=== PATIENT | male | born 1970 | race Caucasian/White ===

== ENCOUNTER 2019-04-14 08:51 | Inpatient (IN) | payer OTHER ==
[2019-04-12 14:22] LABS: BASOPHILS # (AUTO) 0.02 x10^3/uL (0-0.1); BASOPHILS % (AUTO) 0 % (0-1); EOSINOPHILS # (AUTO) 0.02 x10^3/uL (0-0.4); EOSINOPHILS % (AUTO) 0 % (1-7); LYMPHOCYTES # (AUTO) 1.15 x10^3/uL (1-3.4); LYMPHOCYTES % (AUTO) 14 % (22-44); MD NO; MEAN CORPUSCULAR HEMOGLOBIN 28.9 pg (27.5-34.5); MEAN CORPUSCULAR HGB CONC 32.2 g/dL (33.2-36.2); MEAN CORPUSCULAR VOLUME 89.8 fL (81-97); MEAN PLATELET VOLUME 7.3 fL (7.4-10.4); MONOCYTES # (AUTO) 0.52 x10^3/uL (0.2-0.8); MONOCYTES % (AUTO) 6 % (2-9); NEUTROPHILS # (AUTO) 6.53 x10^3/uL (1.8-6.8); NEUTROPHILS % (AUTO) 79 % (42-75); PLATELET COUNT 298 x10^3/uL (130-400); RED BLOOD COUNT 4.14 x10^6/uL (4.38-5.82); RED CELL DISTRIBUTION WIDTH 13.8 % (9.4-14.8)
[2019-04-12 14:33] LABS: ALANINE AMINOTRANSFERASE 24 U/L (12-78); ALBUMIN 3.4 g/dL (3.4-5.0); ANION GAP 7 mmol/L (5-15); CALCIUM 8.4 mg/dL (8.5-10.1); CHLORIDE 111 mmol/L (98-107); CREATININE 1.49 mg/dL (0.7-1.3)
[2019-04-12 14:35] LABS: ALKALINE PHOSPHATASE 72 U/L (45-117); BILIRUBIN,TOTAL 0.3 mg/dL (0.2-1.0); TOTAL PROTEIN 6.8 g/dL (6.4-8.2)
[~2019-04-14] VITALS: Ht 182.9 cm; Wt 99.2 kg
[~2019-04-14 08:51] MED LIST: ADAL40SY INJ; BUDE3CAP6 PO; DIPH1TAB PO
[2019-04-14] MEDS ORDERED: LACTATED RINGERS 1,000 ML IV SCH (09:13)
[2019-04-14 09:21] VITALS: BP 136/82
[2019-04-14] MEDS ORDERED: ACETAMINOPHEN 500 MG TABLET PO ONE (09:30)
[2019-04-14] MEDS ORDERED: GABAPENTIN 300 MG CAPSULE PO ONE (09:30)
[2019-04-14] MEDS ORDERED: ROCURONIUM 10MG/ML,5ML ONE ×2 (11:22→12:16)
[2019-04-14] MEDS ORDERED: EPHEDRINE 50 MG/ML, 1ML ONE (11:22)
[2019-04-14] MEDS ORDERED: PROPOFOL 10 MG/ML, 20ML ONE ×3 (11:22→14:46)
[2019-04-14] MEDS ORDERED: MIDAZOLAM 1 MG/ML, 2ML ONE (11:23)
[2019-04-14] MEDS ORDERED: FENTANYL PF 100 MCG/2ML ONE ×5 (11:23→15:39)
[2019-04-14] MEDS ORDERED: PHENYLEPHRINE 10 MG/ML ONE (11:26)
[2019-04-14] MEDS ORDERED: methylPREDNISolone SOD SUCC 40 MG/ML ONE (11:48)
[2019-04-14] MEDS ORDERED: CEFOTETAN PMX 2GM/50ML 50 ML ONE (12:16)
[2019-04-14] MEDS ORDERED: OXYcodone 5 MG/5 ML ORAL.SOL UDC PO PRN (13:00)
[2019-04-14] MEDS ORDERED: HYDROcodone/APAP 7.5-325MG/15ML UDC PO PRN (13:00)
[2019-04-14] MEDS ORDERED: MEPERIDINE/PF 25MG/0.5ML IVPush PRN (13:00)
[2019-04-14] MEDS ORDERED: ACETAMINOPHEN 325 MG TABLET PO PRN (13:00)
[2019-04-14] MEDS ORDERED: MORPHINE SULFATE 4 MG/ML, 1ML IVPush PRN (13:00)
[2019-04-14] MEDS ORDERED: HYDROmorphone 2 MG/ML, 1ML ONE ×2 (15:15→15:39)
[2019-04-14] MEDS: FENTANYL PF 100 MCG/2ML IV PRN ×4 (15:15→15:55)
[2019-04-14] MEDS: HYDROmorphone 2 MG/ML, 1ML IVPush PRN ×7 (15:20→16:19)
[2019-04-14] MEDS ORDERED: ONDANSETRON 2MG/ML, 2ML ONE (15:44)
[2019-04-14] MEDS ORDERED: ONDANSETRON 2MG/ML, 2ML IV PRN (16:00)
[2019-04-14] MEDS ORDERED: SCOPOLAMINE PATCH, 1.5MG PATCH.TD72 TD PRN (19:00)
[2019-04-14] MEDS ORDERED: CALCIUM CARBONATE 500 MG TAB.CHEW PO PRN (19:00)
[2019-04-14] MEDS ORDERED: TRAZODONE 50MG TABLET PO PRN (19:00)
[2019-04-14] MEDS: KETOROLAC 30 MG/1 ML IVPush SCH (19:00)
[2019-04-14] MEDS ORDERED: LORazepam 2 MG/ML, 1ML IVPush PRN (19:00)
[2019-04-14] MEDS ORDERED: DIPHENHYDRAMINE 25 MG CAPSULE PO PRN (19:00)
[2019-04-14] MEDS ORDERED: LORazepam 1MG TABLET PO PRN (19:00)
[2019-04-14] MEDS ORDERED: HALOPERIDOL 5 MG/ML IVPush PRN (19:00)
[2019-04-14] MEDS ORDERED: DEXAMETHASONE 4 MG/ML, 1ML IVPush PRN ×2 (19:00)
[2019-04-14] MEDS ORDERED: DIPHENHYDRAMINE 50 MG/ML, 1ML IVPush PRN (19:00)
[2019-04-14] MEDS: ACETAMINOPHEN 500 MG TABLET PO SCH (19:01)
[2019-04-14 19:25] VITALS: BP 142/84
[2019-04-14] MEDS: LACTATED RINGERS 1,000 ML IV SCH (19:48)
[2019-04-14 23:49] VITALS: BP 146/84
[2019-04-15] MEDS: KETOROLAC 30 MG/1 ML IVPush SCH ×4 (01:16→19:32)
[2019-04-15] MEDS: ACETAMINOPHEN 500 MG TABLET PO SCH ×4 (01:17→19:32)
[2019-04-15] MEDS: LACTATED RINGERS 1,000 ML IV SCH ×2 (03:00→11:10)
[2019-04-15 03:13] LABS: BASOPHILS # (AUTO) 0.03 x10^3/uL (0-0.1); BASOPHILS % (AUTO) 0 % (0-1); EOSINOPHILS % (AUTO) 0 % (1-7); LYMPHOCYTES # (AUTO) 1.05 x10^3/uL (1-3.4); LYMPHOCYTES % (AUTO) 11 % (22-44); MD NO; MEAN CORPUSCULAR HEMOGLOBIN 29.4 pg (27.5-34.5); MEAN CORPUSCULAR HGB CONC 32.8 g/dL (33.2-36.2); MEAN CORPUSCULAR VOLUME 89.7 fL (81-97); MEAN PLATELET VOLUME 7.3 fL (7.4-10.4); MONOCYTES # (AUTO) 0.81 x10^3/uL (0.2-0.8); MONOCYTES % (AUTO) 8 % (2-9); NEUTROPHILS # (AUTO) 8.07 x10^3/uL (1.8-6.8); NEUTROPHILS % (AUTO) 81 % (42-75); PLATELET COUNT 282 x10^3/uL (130-400); RED BLOOD COUNT 3.92 x10^6/uL (4.38-5.82); RED CELL DISTRIBUTION WIDTH 13.5 % (9.4-14.8)
[2019-04-15 03:23] LABS: ANION GAP 7 mmol/L (5-15); CHLORIDE 108 mmol/L (98-107)
[2019-04-15 03:24] LABS: CREATININE 1.16 mg/dL (0.7-1.3)
[2019-04-15 03:50] VITALS: BP 138/80
[2019-04-15 06:55] VITALS: BP 131/82
[2019-04-15] MEDS: ENOXAPARIN 40 MG/0.4 ML SQ SCH (08:06)
[2019-04-15] MEDS ORDERED: MAGNESIUM SULFATE PMX 2GM/50ML 50 ML IVPB ONE (10:00)
[2019-04-15 12:20] VITALS: BP 142/78
[2019-04-15] MEDS: D5%-0.45NACL+KCL 20MEQ 1,000 ML IV SCH (17:09)
[2019-04-15 18:42] VITALS: BP 155/84
[2019-04-15] MEDS: ONDANSETRON 2MG/ML, 2ML IV PRN (19:30)
[2019-04-16 01:35] VITALS: BP 148/86
[2019-04-16] MEDS: D5%-0.45NACL+KCL 20MEQ 1,000 ML IV SCH ×2 (02:13→13:02)
[2019-04-16] MEDS: ACETAMINOPHEN 500 MG TABLET PO SCH ×4 (02:13→20:48)
[2019-04-16] MEDS: KETOROLAC 30 MG/1 ML IVPush SCH ×4 (02:14→20:47)
[2019-04-16 03:33] LABS: BASOPHILS % (AUTO) 0 % (0-1); EOSINOPHILS % (AUTO) 0 % (1-7); LYMPHOCYTES % (AUTO) 6 % (22-44); MD NO; MEAN CORPUSCULAR HEMOGLOBIN 29.6 pg (27.5-34.5); MEAN CORPUSCULAR VOLUME 89.9 fL (81-97); MEAN PLATELET VOLUME 7.2 fL (7.4-10.4); MONOCYTES # (AUTO) 0.38 x10^3/uL (0.2-0.8); MONOCYTES % (AUTO) 4 % (2-9); NEUTROPHILS # (AUTO) 7.87 x10^3/uL (1.8-6.8); NEUTROPHILS % (AUTO) 90 % (42-75); PLATELET COUNT 279 x10^3/uL (130-400); RED BLOOD COUNT 3.72 x10^6/uL (4.38-5.82); RED CELL DISTRIBUTION WIDTH 13.3 % (9.4-14.8)
[2019-04-16 03:41] LABS: ANION GAP 3 mmol/L (5-15); CALCIUM 8.5 mg/dL (8.5-10.1); CHLORIDE 107 mmol/L (98-107); CREATININE 1.06 mg/dL (0.7-1.3)
[2019-04-16 08:00] VITALS: BP 154/82
[2019-04-16] MEDS: ENOXAPARIN 40 MG/0.4 ML SQ SCH (09:10)
[2019-04-16 14:00] VITALS: BP 138/77
[2019-04-16] MEDS ORDERED: ASA/APAP/ CAFFEINE TABLET PO PRN (18:00)
[2019-04-16 18:46] VITALS: BP 161/94
[2019-04-16] MEDS: SODIUM CHLORIDE 0.9% 1,000 ML IV SCH (20:47)
[2019-04-17] MEDS: KETOROLAC 30 MG/1 ML IVPush SCH ×3 (02:42→15:16)
[2019-04-17] MEDS: ACETAMINOPHEN 500 MG TABLET PO SCH ×4 (02:42→20:30)
[2019-04-17 03:59] VITALS: BP 131/72
[2019-04-17 05:48] LABS: BASOPHILS # (AUTO) 0.03 x10^3/uL (0-0.1); BASOPHILS % (AUTO) 1 % (0-1); EOSINOPHILS # (AUTO) 0.06 x10^3/uL (0-0.4); EOSINOPHILS % (AUTO) 1 % (1-7); LYMPHOCYTES # (AUTO) 1.37 x10^3/uL (1-3.4); LYMPHOCYTES % (AUTO) 19 % (22-44); MD NO; MEAN CORPUSCULAR HEMOGLOBIN 29.7 pg (27.5-34.5); MEAN CORPUSCULAR HGB CONC 32.8 g/dL (33.2-36.2); MEAN CORPUSCULAR VOLUME 90.5 fL (81-97); MEAN PLATELET VOLUME 7.7 fL (7.4-10.4); MONOCYTES # (AUTO) 0.63 x10^3/uL (0.2-0.8); MONOCYTES % (AUTO) 9 % (2-9); NEUTROPHILS # (AUTO) 5.33 x10^3/uL (1.8-6.8); NEUTROPHILS % (AUTO) 72 % (42-75); PLATELET COUNT 267 x10^3/uL (130-400); RED BLOOD COUNT 3.53 x10^6/uL (4.38-5.82); RED CELL DISTRIBUTION WIDTH 13.6 % (9.4-14.8)
[2019-04-17 05:59] LABS: ANION GAP 4 mmol/L (5-15); CALCIUM 8.7 mg/dL (8.5-10.1); CHLORIDE 107 mmol/L (98-107)
[2019-04-17 06:00] LABS: CREATININE 1.01 mg/dL (0.7-1.3)
[2019-04-17] MEDS: SODIUM CHLORIDE 0.9% 1,000 ML IV SCH ×2 (06:01→15:22)
[2019-04-17 08:00] VITALS: BP 158/76
[2019-04-17] MEDS: ENOXAPARIN 40 MG/0.4 ML SQ SCH (09:15)
[2019-04-17 13:20] VITALS: BP 147/71
[2019-04-17] MEDS: OXYcodone IR 5MG TABLET PO PRN ×3 (15:16→22:03)
[2019-04-17] MEDS: MORPHINE SULFATE 4 MG/ML, 1ML IVPush PRN ×2 (17:12→20:30)
[2019-04-17 18:59] VITALS: BP 128/86
[2019-04-18 01:04] VITALS: BP 146/89
[2019-04-18] MEDS: SODIUM CHLORIDE 0.9% 1,000 ML IV SCH ×2 (01:07→11:12)
[2019-04-18] MEDS: OXYcodone IR 5MG TABLET PO PRN ×6 (01:07→21:07)
[2019-04-18] MEDS: MORPHINE SULFATE 4 MG/ML, 1ML IVPush PRN ×2 (03:12→17:20)
[2019-04-18] MEDS: ACETAMINOPHEN 500 MG TABLET PO SCH ×4 (03:26→21:57)
[2019-04-18 05:03] LABS: BASOPHILS # (AUTO) 0.04 x10^3/uL (0-0.1); BASOPHILS % (AUTO) 1 % (0-1); EOSINOPHILS # (AUTO) 0.15 x10^3/uL (0-0.4); EOSINOPHILS % (AUTO) 2 % (1-7); LYMPHOCYTES # (AUTO) 1.18 x10^3/uL (1-3.4); LYMPHOCYTES % (AUTO) 18 % (22-44); MD NO; MEAN CORPUSCULAR HEMOGLOBIN 29.8 pg (27.5-34.5); MEAN CORPUSCULAR HGB CONC 33.1 g/dL (33.2-36.2); MEAN CORPUSCULAR VOLUME 89.8 fL (81-97); MEAN PLATELET VOLUME 7.5 fL (7.4-10.4); MONOCYTES # (AUTO) 0.51 x10^3/uL (0.2-0.8); MONOCYTES % (AUTO) 8 % (2-9); NEUTROPHILS # (AUTO) 4.59 x10^3/uL (1.8-6.8); NEUTROPHILS % (AUTO) 71 % (42-75); PLATELET COUNT 306 x10^3/uL (130-400); RED BLOOD COUNT 3.59 x10^6/uL (4.38-5.82); RED CELL DISTRIBUTION WIDTH 13.3 % (9.4-14.8)
[2019-04-18] MEDS: ONDANSETRON 2MG/ML, 2ML IV PRN (05:07)
[2019-04-18 05:10] LABS: ANION GAP 6 mmol/L (5-15); CALCIUM 8.7 mg/dL (8.5-10.1); CHLORIDE 109 mmol/L (98-107); CREATININE 1.01 mg/dL (0.7-1.3)
[2019-04-18 07:41] VITALS: BP 131/64
[2019-04-18] MEDS: ENOXAPARIN 40 MG/0.4 ML SQ SCH (08:07)
[2019-04-18] MEDS: IBUPROFEN 600 MG TABLET PO SCH ×3 (08:07→21:06)
[2019-04-18 13:36] VITALS: BP 132/73
[2019-04-18 19:57] VITALS: BP 130/79
[2019-04-19] MEDS: SODIUM CHLORIDE 0.9% 1,000 ML IV SCH ×3 (00:09→20:00)
[2019-04-19] MEDS: OXYcodone IR 5MG TABLET PO PRN ×7 (00:19→21:02)
[2019-04-19 02:31] VITALS: BP 144/88
[2019-04-19] MEDS: IBUPROFEN 600 MG TABLET PO SCH ×3 (04:45→16:51)
[2019-04-19] MEDS: ACETAMINOPHEN 500 MG TABLET PO SCH ×3 (06:13→17:20)
[2019-04-19 07:35] VITALS: BP 138/78
[2019-04-19] MEDS: ENOXAPARIN 40 MG/0.4 ML SQ SCH (07:50)
[2019-04-19 11:40] LABS: ANION GAP 6 mmol/L (5-15); CHLORIDE 104 mmol/L (98-107); CREATININE 1.09 mg/dL (0.7-1.3)
[2019-04-19 11:42] LABS: BASOPHILS # (AUTO) 0.03 x10^3/uL (0-0.1); BASOPHILS % (AUTO) 0 % (0-1); EOSINOPHILS # (AUTO) 0.17 x10^3/uL (0-0.4); EOSINOPHILS % (AUTO) 2 % (1-7); LYMPHOCYTES # (AUTO) 0.93 x10^3/uL (1-3.4); LYMPHOCYTES % (AUTO) 12 % (22-44); MD NO; MEAN CORPUSCULAR HEMOGLOBIN 29.9 pg (27.5-34.5); MEAN CORPUSCULAR VOLUME 90.4 fL (81-97); MEAN PLATELET VOLUME 7.4 fL (7.4-10.4); MONOCYTES # (AUTO) 0.51 x10^3/uL (0.2-0.8); MONOCYTES % (AUTO) 7 % (2-9); NEUTROPHILS % (AUTO) 79 % (42-75); PLATELET COUNT 329 x10^3/uL (130-400); RED BLOOD COUNT 3.75 x10^6/uL (4.38-5.82); RED CELL DISTRIBUTION WIDTH 13.3 % (9.4-14.8)
[2019-04-19 14:26] VITALS: BP 129/74
[2019-04-19 19:02] VITALS: BP 120/79
[2019-04-20] MEDS: IBUPROFEN 600 MG TABLET PO SCH ×2 (00:05→05:45)
[2019-04-20] MEDS: OXYcodone IR 5MG TABLET PO PRN ×3 (00:05→08:08)
[2019-04-20 00:28] VITALS: BP 144/79
[2019-04-20] MEDS: SODIUM CHLORIDE 0.9% 1,000 ML IV SCH (06:00)
[2019-04-20 07:50] VITALS: BP 135/85
[2019-04-20] MEDS: ENOXAPARIN 40 MG/0.4 ML SQ SCH (08:08)
[2019-04-20] MEDS ORDERED: IBUP-1222 PO (08:24)
[2019-04-20] MEDS ORDERED: OXYC-302 PO (08:25)
== END 2019-04-20 10:10 | disposition home or self-care (01) | DRG 330 ==
LOC: ORIP 08:51 → 4NOR 17:29 → DCLOUNGE 04-20 10:08
PROVIDERS: ADMIT Colon & Rectal Surgery; ATTEND Colon & Rectal Surgery
PROC: 0DN80ZZ Release Small Intestine, Open Approach (ICD-10-PCS; 2019-04-14)
PROC: 0DNW0ZZ Release Peritoneum, Open Approach (ICD-10-PCS; 2019-04-14)
PROC: 0DTF0ZZ Resection of Right Large Intestine, Open Approach (ICD-10-PCS; 2019-04-14)
PROC: 0WPF0JZ Removal of Synthetic Substitute from Abdominal Wall, Open Approach (ICD-10-PCS; 2019-04-14)
PROC: 0DNU0ZZ Release Omentum, Open Approach (ICD-10-PCS; 2019-04-14)
PROC: 0DNV0ZZ Release Mesentery, Open Approach (ICD-10-PCS; 2019-04-14)
PROC: 0WUF0JZ Supplement Abdominal Wall with Synthetic Substitute, Open Approach (ICD-10-PCS; 2019-04-14)
PROC: 0DBL0ZZ Excision of Transverse Colon, Open Approach (ICD-10-PCS; principal; 2019-04-14 11:00)
DX: K43.6 Other and unspecified ventral hernia with obstruction, without gangrene (principal); K50.90 Crohn's disease, unspecified, without complications; Z88.2 Allergy status to sulfonamides; Z87.891 Personal history of nicotine dependence; Z91.013 Allergy to seafood
CPT/HCPCS: 36415; 80048; 80053; 83735; 85025; 86850; 86900; 88302; 88307; 93005; C1729; G0378; J1100; J1170; J1650; J1885; J2250; J2270; J2405; J2704; J3010; J2370; J2920; J3475; J3480; J3490; J7030; J7120; Q4116